=== PATIENT | female | born 1955 | race Caucasian/White ===

== ENCOUNTER → 2016-06-13 | Outpatient (CLI) | payer OTHER ==
[~2016-06-13] MED LIST: ALLEGRA PO; ALPRAZOLAM PO; CERTAGEN PO; EC-NAPROSYN500 MG PO; FLEXERIL PO; INDERAL40 MG PO; LISINOPRIL PO; NAPROSYN500 MG PO; NAPROXEN PO; RELPAX40 MG PO; SIMVASTATIN20 MG PO; TOPAMAX25 MG PO; ZOLOFT PO; ZYRTEC10 M2 PO
--- NOTE | ~2016-06-13 | CR169 ---
[facility] A Service of [facility] & [facility] RADIOLOGY TEXT RESULTS PATIENT: KELLY KATZ LOCATION: [facility] : 59 UNIT #: [id number] AGE: [address]: Karey Mitchell MD SEX: F ORDER DR: [id number] [facility] [address] [place], [place] [address] [id number] O MR#: [id number] Acc #: [id number] NAME: KELLY KATZ : 1955 SEX: F STUDY DATE/TIME: 06/13/2016 12:40 UNIT: [facility] ROOM: STUDY DESCRIPTION: CR Knee 2 Views Lt Attending Physician: Karey Mitchell M.D. Referring Physician: Karey Mitchell M.D. Ordering Physician: Karey Mitchell M.D. Primary Care Physician: Karey Mitchell M.D. MEDICAL IMAGING REPORT This report is preliminary unless electronic signature is present EXAM Left knee INDICATION Left knee pain. FINDINGS 2 views of the left knee without comparison. There is no acute fracture or dislocation. No knee effusion. IMPRESSION Negative left knee. Dictated by... Jerrell Membreno M.D. THIS IS AN ELECTRONICALLY VERIFIED REPORT Jerrell Membreno M.D. at 06/14/2016 8:08 AM Salo TD: 06/13/2016 16:13 JOB #: [id number] MEDICAL IMAGING REPORT Page 1 of 1 COPY
== END | disposition home or self-care (01) ==
LOC: CRAD 12:22
DX: M25.562 Pain in left knee (principal)
CPT/HCPCS: 73560